=== PATIENT | male | born 1960 | race Native Hawaiian/Other Pacific Islander ===

== ENCOUNTER 2018-10-11 16:18 | Outpatient (CLI) | payer OTHER ==
[~2018-10-11 16:18] MED LIST: ACET5TAB36 PO; ASA LOW STR81 MG PO; DICLOFENAC SOD100 M2 PO; FLUO20CA6 PO; FURO20TA67 PO; GABA300C2 PO; HYDR10TA47 PO; LEVO0.0529 PO; LISITAB PO; METF500T PO; MOBIC7.5 M1 PO; NEURONTIN800 MG PO; OMEP20CA PO; POTA20TA4 PO; PROAIR HFA IN; TRAM50TA PO; TRAZODONE150 MG PO; ZOLP10TA2 PO
== END 2018-10-11 23:42 | disposition home or self-care (01) ==
LOC: LABW 16:18
PROVIDERS: Nurse Practitioner Family
DX: R25.2 Cramp and spasm (principal)
CPT/HCPCS: 36415; 80053

== ENCOUNTER 2018-10-23 11:49 | Outpatient (CLI) | payer OTHER | END 2018-10-24 05:52 | disposition home or self-care (01) | LOC: RAD 11:49 | DX: M25.511 Pain in right shoulder (principal) ==

== ENCOUNTER 2020-10-06 18:39 | Emergency (ER) | payer OTHER ==
[~2020-10-06] VITALS: Ht 182.9 cm; Wt 113.9 kg
[2020-10-06 19:30] LABS: PLATELET COUNT 149 K/uL (142-355)
[2020-10-06 19:37] LABS: POTASSIUM 2.9 mmol/L (3.6-5.2)
[2020-10-06 22:45] VITALS: BP 105/62; TEMP 98.3
== END 2020-10-06 22:45 | disposition home or self-care (01) ==
LOC: ED 18:39
PROVIDERS: Emergency Medicine Emergency Medical Services
PROC: 0HQ0XZZ Repair Scalp Skin, External Approach (ICD-10-PCS; principal; 2020-10-06)
DX: S00.03XA Contusion of scalp, initial encounter (principal); S01.01XA Laceration without foreign body of scalp, initial encounter; S50.812A Abrasion of left forearm, initial encounter; S50.811A Abrasion of right forearm, initial encounter; R07.89 Other chest pain; W20.8XXA Other cause of strike by thrown, projected or falling object, initial encounter; Y92.89 Other specified places as the place of occurrence of the external cause
CPT/HCPCS: 36415; 80048; 80320; 85027; 96360; 96375; 99284; J2001; J2270; J2405; J7040; Q9963

== ENCOUNTER 2021-05-28 08:23 | Outpatient (CLI) | payer OTHER ==
[~2021-05-28] VITALS: Ht 182.9 cm; Wt 120.2 kg
== END 2021-05-28 19:07 | disposition home or self-care (01) ==
LOC: NM 08:23
PROVIDERS: ATTEND Nurse Practitioner Family
DX: R00.1 Bradycardia, unspecified (principal)
CPT/HCPCS: A9500; J2785

== ENCOUNTER 2021-09-08 22:06 | Emergency (ER) | payer OTHER ==
[~2021-09-08] VITALS: Ht 182.9 cm; Wt 124.7 kg
[2021-09-08 23:37] VITALS: BP 136/79; TEMP 98.2
== END 2021-09-08 23:37 | disposition home or self-care (01) ==
LOC: ED 22:06
DX: F41.8 Other specified anxiety disorders (principal)
CPT/HCPCS: 93005; 99283

== ENCOUNTER 2021-12-09 15:15 | Outpatient (CLI) | payer OTHER | END 2021-12-09 18:55 | disposition home or self-care (01) | LOC: RAD 15:15 | PROVIDERS: ATTEND Nurse Practitioner Family | DX: M54.17 Radiculopathy, lumbosacral region (principal) ==

== ENCOUNTER 2022-02-08 09:32 | Outpatient (CLI) | payer OTHER | END 2022-02-08 19:59 | disposition home or self-care (01) | LOC: MRI 09:32 | PROVIDERS: ATTEND Orthopaedic Surgery | DX: M54.16 Radiculopathy, lumbar region (principal) ==